=== PATIENT | female | born 1960 | race African-American/Black ===

== ENCOUNTER 2021-12-14 03:33 | Emergency (ER) | payer MEDICAID ==
[~2021-12-14] VITALS: Ht 182.9 cm; Wt 70.0 kg
[~2021-12-14 03:33] MED LIST: ALBU18HF2 IH; DIPH25TA24 PO; ESTR42.510 VG; FAMO20TA8 PO; FLUT1DIS3 INH; HYDR-4001 PO; HYDR-459 PO; IPRA3AMP9 NEB; P20 PO; TC1U15 TP; TOPUD PO; VALA100044 PO
[2021-12-14] MEDS ORDERED: MORPHINE SULFATE 4 MG/ML CPJ (NOT FOR IM USE) IV STA (05:23)
[2021-12-14] MEDS ORDERED: ONDANSETRON HCL 4MG/2ML INJ IV STA (05:23)
[2021-12-14] MEDS ORDERED: SODIUM CHLORIDE 0.9% 1,000 ML IV ONE (05:30)
[2021-12-14 05:53] LABS: CHLORIDE 107 mEq/L (98-107)
[2021-12-14 06:16] LABS: BASOPHILS % 0.8 % (0.0-2.0); EOSINOPHILS % 1.4 % (0.0-5.0); HEMATOCRIT. 43.6 % (36.0-48.0); HEMOGLOBIN. 14.5 g/dL (12.0-16.0); LYMPHOCYTES % 23.2 % (20.0-50.0); MEAN CORPUSCULAR HEMOGLOBIN 31.4 pg (28.0-32.0); MEAN CORPUSCULAR VOLUME 94.6 fL (81.0-99.0); MEAN PLATELET VOLUME 8.7 fl (7.4-10.4); MONOCYTES % 7.6 % (2.0-8.0); PLATELET 346 x1000/uL (130-400); RED BLOOD CELL COUNT 4.61 mill/uL (4.2-5.4); RED CELL DISTRIBUTION WIDTH 13.9 % (11.6-14.6)
[2021-12-14 06:40] LABS: CLARITY URINE CLEAR (CLEAR); COLOR URINE YELLOW (YELLOW); KETONES URINE NEGATIVE (NEGATIVE); LEUKOCYTE ESTERASE URINE NEGATIVE (NEGATIVE); NITRITE URINE NEGATIVE (NEGATIVE); OCCULT BLOOD URINE NEGATIVE (NEGATIVE); PH URINE 5.5 (4.5-8.0); PROTEIN URINE NEGATIVE (NEGATIVE); SPECIFIC GRAVITY URINE 1.018 (1.005-1.030); UROBILINOGEN URINE 0.2 E.U./dL (0.2-1.0)
[2021-12-14] MEDS ORDERED: NORF MT (06:58)
[2021-12-14] MEDS ORDERED: TRAM50TA3 MT (06:58)
[2021-12-14] MEDS ORDERED: TRAMADOL 50MG TABLET PO ONE (07:30)
[2021-12-14 07:33] VITALS: BP 170/100
== END 2021-12-14 07:58 | disposition home or self-care (01) ==
LOC: ER 03:33
DX: R10.9 Unspecified abdominal pain (principal); Z88.0 Allergy status to penicillin; Z88.6 Allergy status to analgesic agent; Z91.040 Latex allergy status
CPT/HCPCS: 36415; 74176; 80053; 81003; 85025; 96361; 96374; 96375; 99284; J2270; J2405; J7030